=== PATIENT | female | born 1960 | race Two or more races ===

== ENCOUNTER 2025-06-26 09:04 | Outpatient (RCR) | payer MEDICAID, SELFPAY ==
--- NOTE | 2025-06-26 10:00 | XR_ITS ---
EXAMINATION: Nuclear medicine gastric emptying study Date and time: June 26, 2025, 12:39 p.m. INDICATIONS: Epigastric burning sensation with eating for months TECHNIQUE AND FINDINGS: Oral administration 1.9 mCi Tc 99m sulfur colloid Gastric imaging to 120 minutes Retention of isotope activity at 120 minutes is 55.6% IMPRESSION: Abnormal gastric emptying study
== END 2025-07-01 23:59 | disposition home or self-care (01) ==
LOC: SNUC 09:04
PROVIDERS: PCP Specialist; Referring Provider Specialist; Visit Provider Specialist
DX: R94.8 Abnormal results of function studies of other organs and systems (principal)
CPT/HCPCS: 78264; A9541